=== PATIENT | male | born 1970 | race Caucasian/White ===

== ENCOUNTER → 2021-06-19 | Outpatient (CLI) | payer OTHER | LOC: COL.RAD 12:33 | DX: M25.571 Pain in right ankle and joints of right foot (principal); Z98.890 Other specified postprocedural states; M79.89 Other specified soft tissue disorders ==

== ENCOUNTER 2021-12-15 21:28 | Emergency (ER) | payer OTHER ==
[~2021-12-15] VITALS: Ht 180.3 cm; Wt 93.2 kg
[2021-12-15 21:36] VITALS: TEMP 98.3
[2021-12-16] MEDS ORDERED: IMITREX ST6 MG/0.5 M SQ (00:04)
[2021-12-16 00:20] VITALS: BP 132/80; PULSE 86
== END 2021-12-16 00:20 | disposition home or self-care (01) ==
LOC: COL.ER 21:28
DX: R51.9 Headache, unspecified (principal); Z28.310 Unvaccinated for COVID-19
CPT/HCPCS: J1885; J2765; J3030; J7040